=== PATIENT | male | born 1970 | race Caucasian/White ===

== ENCOUNTER 2025-11-04 07:36 | Outpatient (CLI) | payer BC | END 2025-11-04 07:37 | disposition home or self-care (01) | LOC: SCSULT 07:36 | PROVIDERS: ATTEND Family Medicine | DX: R74.8 Abnormal levels of other serum enzymes (principal); K76.0 Fatty (change of) liver, not elsewhere classified; R16.0 Hepatomegaly, not elsewhere classified; R19.00 Intra-abdominal and pelvic swelling, mass and lump, unspecified site | CPT/HCPCS: 76705; 93976 ==